=== PATIENT | male | born 1965 | race Caucasian/White ===

== ENCOUNTER 2017-02-13 19:10 | Emergency (ER) | payer BC ==
[2017-02-13 19:23] VITALS: BP 127/73
--- NOTE | 2017-02-13 19:41 | UC ---
Skin Complaint HPI - HPI Summary HPI Summary: 51 yo male with tick bite yesterday and another one today removed here to see if they are entirely gone max time attached about 2 hours - History of Current Complaint Chief Complaint: UCSkin Time Seen by Provider: 02/13/17 19:25 Stated Complaint: TICK BITE Onset/Duration: Sudden Onset Timing: Constant Current Severity: None Pain Intensity: 0 Pain Scale Used: 0-10 Numeric Aggravating: Nothing Associated Signs & Symptoms: Positive: Negative Related History: Insect Bite/Sting - Allergy/Home Medications Allergies/Adverse Reactions: Allergies Allergy/AdvReac Type Severity Reaction Status Date / Time Aspartame Allergy ITCHY Verified 02/13/17 19:23 THROAT Review of Systems Constitutional: Negative Skin: Negative Eyes: Negative ENT: Negative Respiratory: Negative Cardiovascular: Negative Gastrointestinal: Negative Genitourinary: Negative Motor: Negative Neurovascular: Negative Musculoskeletal: Negative Neurological: Negative Psychological: Negative All Other Systems Reviewed And Are Negative: Yes PMH/Surg Hx/FS Hx/Imm Hx Previously Healthy: Yes - Surgical History Surgical History: Yes Surgery Procedure, Year, and Place: acl right knee- 20 years ago. left ankle fx - 25 yrs ago. meniscus repair right knee- 10 yrs ago - Social History Alcohol Use: Occasionally Substance Use Type: None Smoking Status (MU): Never Smoked Tobacco Physical Exam Triage Information Reviewed: Yes Appearance: No Pain Distress, Well-Nourished, Ill-Appearing Vital Signs: Initial Vital Signs Temp 98.4 F 02/13/17 19:19 Pulse 88 02/13/17 19:19 Resp 18 02/13/17 19:19 BP 127/73 02/13/17 19:19 Pulse Ox 98 02/13/17 19:19 Vital Signs Reviewed: Yes Eyes: Positive: Conjunctiva Clear ENT: Positive: Hearing grossly normal. Negative: Nasal congestion, Nasal drainage, Trismus, Muffled/hoarse voice Neck: Positive: Supple, Nontender, No Lymphadenopathy Respiratory: Positive: Lungs clear, Normal breath sounds, No respiratory distress, No accessory muscle use Cardiovascular: Positive: RRR, No Murmur Musculoskeletal: Positive: ROM Intact, No Edema Neurological: Positive: Alert Psychological Exam: Normal Skin Exam: Other - seeimage Course/Dx - Diagnoses Provider Diagnoses: tick bites Discharge - Discharge Plan Condition: Stable Disposition: HOME Patient Education Materials: Tick Bite (ED) Referrals: Basilio Barker MD [Primary Care Provider] - Additional Instructions: call for any question s return for any problems Images Front/Back of Body, Lg ([place]): 1 - tick bite 2 - tick bite
== END 2017-02-13 19:45 | disposition home or self-care (01) ==
LOC: UCEAST 19:10
DX: S70.362A Insect bite (nonvenomous), left thigh, initial encounter (principal); S30.860A Insect bite (nonvenomous) of lower back and pelvis, initial encounter; W57.XXXA Bitten or stung by nonvenomous insect and other nonvenomous arthropods, initial encounter; Y93.9 Activity, unspecified; Y92.9 Unspecified place or not applicable
CPT/HCPCS: 99211; G0463

== ENCOUNTER 2019-07-18 12:31 | Emergency (ER) | payer BC ==
[2019-07-18 12:41] VITALS: BP 140/103
--- NOTE | 2019-07-18 13:42 | UC ---
Upper Extremity HPI - HPI Summary HPI Summary: 54 year old male presents with red hand/ forearm swelling, pain, drainage, blistering since Tuesday. patient was working in the garden when was stung, blieves 2 times, by insect. Took glove off, rubbed hand with other glove which he thinks may have had poison carmina on glove, does have reactions to poison carmina in past, no prior reactions to stings. no other symptoms, no breathing complaints. - History of Current Complaint Chief Complaint: UCRash Stated Complaint: RASH Time Seen by Provider: 07/18/19 13:16 Hx Obtained From: Patient ?: No Onset/Duration: Sudden Onset Severity Initially: Moderate Severity Currently: Moderate Pain Intensity: 4 Pain Scale Used: 0-10 Numeric Location Of Pain: Is Discrete @ - left hand extending up to forearm. Character: Aching, Stiffness, Burning Associated Signs And Symptoms: Positive: Swelling, Redness, Other - burning, itch - Allergies/Home Medications Allergies/Adverse Reactions: Allergies Allergy/AdvReac Type Severity Reaction Status Date / Time aspartame Allergy itchy Verified 07/18/19 12:42 throat MS Aspartame [Aspartame] Allergy ITCHY Verified 02/13/17 19:23 THROAT PMH/Surg Hx/FS Hx/Imm Hx Previously Healthy: Yes - Surgical History Surgical History: Yes Surgery Procedure, Year, and Place: acl right knee- 20 years ago. left ankle fx - 25 yrs ago. meniscus repair right knee- 10 yrs ago - Family History Known Family History: Positive: Non-Contributory - Social History Alcohol Use: Occasionally Substance Use Type: None Smoking Status (MU): Never Smoked Tobacco Review of Systems All Other Systems Reviewed And Are Negative: Yes Constitutional: Positive: Negative Skin: Positive: Rash Respiratory: Positive: Negative. Negative: Shortness Of Breath Musculoskeletal: Positive: Edema. Negative: Decreased ROM Neurological: Positive: Negative. Negative: Weakness, Paresthesia, Numbness Psychological: Positive: Negative Physical Exam Triage Information Reviewed: Yes Appearance: Well-Appearing, No Pain Distress, Well-Nourished Vital Signs: Initial Vital Signs Temp 98 F 07/18/19 12:39 Pulse 56 07/18/19 12:39 Resp 16 07/18/19 12:39 BP 140/103 07/18/19 12:39 Pulse Ox 100 07/18/19 12:39 Vital Signs Reviewed: Yes Eyes: Positive: Conjunctiva Clear ENT: Positive: Pharynx normal, Uvula midline. Negative: Pharyngeal erythema, Tonsillar swelling, Tonsillar exudate Musculoskeletal: Positive: Strength Intact, ROM Intact, Edema @ - left forearm moderate non-pitting edema extending from elbow into hands, ending at MCPs. full ROM of wrist, fingers b/l. Neurological Exam: Normal Neurological: Positive: Other: - SITLT distal to elbow Psychological Exam: Normal Skin: Positive: Other - edema, erythema at left hand as above, full ROM without pain at wrist, fingers, elbow, slightly limited by edema. non-tender. grouped vesicles at base of thumb with increased moderate erythema around area, mild erythema throughout extending region. Upper Extremity Course/Dx - Course Course Of Treatment: Allergic reaction, Left hand - Prednisone taper as directed starting today - may stop if side effects too severe - Continue to use Benadryl cream as needed for symptoms - Motrin/ tylenol as needed for pain - To go ER or return with worsening symptoms, increased pain, decreased motion, difficulty breathing, swallowing - Differential Dx/Diagnosis Provider Diagnosis: Allergic reaction to bee sting Discharge ED - Sign-Out/Discharge Documenting (check all that apply): Patient Departure All imaging exams completed and their final reports reviewed: No Studies - Discharge Plan Condition: Good Disposition: HOME Prescriptions: methylPREDNISolone [Medrol Dosepak 4 MG*] 1 rachell PO .SEE RACHELL INSTRUCTION #1 rachell Patient Education Materials: General Allergic Reaction (ED) Referrals: Basilio Barker MD [Primary Care Provider] - Additional Instructions: Allergic reaction, Left hand - Prednisone taper as directed starting today - may stop if side effects too severe - Continue to use Benadryl cream as needed for symptoms - Motrin/ tylenol as needed for pain - To go ER or return with worsening symptoms, increased pain, decreased motion, difficulty breathing, swallowing - Billing Disposition and Condition Condition: GOOD Disposition: Home
== END 2019-07-18 13:34 | disposition home or self-care (01) ==
LOC: UCEAST 12:31
DX: T63.441A Toxic effect of venom of bees, accidental (unintentional), initial encounter (principal); Y92.9 Unspecified place or not applicable
CPT/HCPCS: 99212; G0463